=== PATIENT | male | born 1945 | race Caucasian/White ===

== ENCOUNTER 2020-02-04 14:01 | Outpatient (CLI) | payer MEDICARE, OTHER, SELFPAY ==
--- NOTE | ~2020-02-04 | XR_ITS ---
EXAMINATION: XR fl inj shoulder LT - MR/CT DATE: 02/04/2020 14:51 INDICATION: Left shoulder pain. TECHNIQUE: A time-out was performed to verify the patient's name, date of , and procedure to b e performed. The procedure including the risks, benefits, and alternatives was discussed with the pat ient. Risks discussed included bleeding and infection. The patient understood the risks and agreed to proceed. The skin overlying the left glenohumeral joint was prepped and draped in usual sterile fash ion. Anesthetic was administered with 1% lidocaine subcutaneously. A 22 G needle was advanced under fluoroscopic guidance into the joint. Subsequently, injectate consisting of 12 mL of 1:4 1% lidocai ne and 1:2 Omnipaque 240 was instilled. The needle was removed and the entry site was cleaned and dr essed. There were no immediate complications. Fluoroscopy exposure time was 0.1 minutes. The total n umber of images was 3. FINDINGS: Real-time fluoroscopy demonstrates the needle and contrast in the left glenohumeral joint. IMPRESSION: 1. Successful left glenohumeral joint injection of contrast for subsequent CT arthrography. Reviewed, dictated and finalized at location A. IMPRESSION: 1. Successful left glenohumeral joint injection of contrast for subsequent CT a rthrography.
--- NOTE | ~2020-02-04 | CT_ITS ---
EXAMINATION: CT shoulder LT w con DATE: 02/04/2020 14:53 INDICATION: Left shoulder pain. TECHNIQUE: Computed tomography (CT) of the left shoulder was performed without intravenous contrast a fter intra-articular injection of contrast (CT arthrogram). Automated exposure control and iterative reconstruction technique were employed. The dose-length product was 566.52 mGy-cm. COMPARISON: None FINDINGS: Bone alignment is normal. No fracture. There is a benign bone island in the scapula. There is deep partial thickness cartilage loss of medial humeral head and inferior glenoid. There is severe osteoarthritis of acromioclavicular joint. Biceps tendon is in bicipital groove. There is a full-thi ckness tear of supraspinatus and infraspinatus tendons measuring 4.5 cm anterior to posterior by 4.2 cm proximal to distal. There is an articular sided partial-thickness tear of superior subscapularis t endon. There is volume loss and mild fatty atrophy of supraspinatus and infraspinatus muscle bellies. There is contrast in the glenohumeral joint and subacromial/subdeltoid bursa. 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 IMPRESSION: 1. Massive full-thickness rotator cuff tear. 2. Moderate glenohumeral joint chondrosis. 3. Severe acromioclavicular joint osteoarthritis. Reviewed, dictated and finalized at location A.
== END 2020-02-04 14:02 | disposition home or self-care (01) ==
LOC: ANHIMG 14:10
PROVIDERS: PCP Internal Medicine; Visit Provider Physician Assistant Surgical
DX: M19.012 Primary osteoarthritis, left shoulder (principal)
CPT/HCPCS: 23350; 73201; 77002; Q9966

== ENCOUNTER 2022-02-13 17:21 | Emergency (ER) | payer MEDICARE, OTHER, SELFPAY ==
[2022-02-13 17:31] VITALS: BP 122/68; PULSE 75; RESP 16; TEMP 36.5; O2SAT 100
--- NOTE | 2022-02-13 17:50 | ED.WOUNDLAC ---
HPI - Wound/Laceration General Chief Complaint: Wound/Laceration Stated Complaint: Head injury Time Seen by Provider: 02/13/22 17:40 Source: patient and family Mode of arrival: ambulatory Limitations: no limitations History of Present Illness HPI narrative: Mr. Oneal is a 76-year-old male patient presenting to the clinic today with complaints of laceration to the back of the head. He reports he was knocked off the mower when hitting a landscape brick and hit his head up against a post causing a laceration to the back of his head. He denies loss of consciousness. He denies a current headache. Is on Eliquis and wound is bleeding. This happened around 4:00 today and he has since showered. Tetanus is up-to-date. Also has abrasion to the left shoulder and left ear. Related Data Allergies Allergy/AdvReac Type Severity Reaction Status Date / Time propoxyphene Allergy Mild UNKNOWN; Unverified 02/13/22 17:51 REACTION IN 1968 Review of Systems Review of Systems: Pertinent positives per HPI. Patient denies any fever, chills, rash, headache, visual changes, dizziness, cough, runny nose, sore throat, shortness of breath, chest pain, palpitations, nausea, vomiting, diarrhea, constipation, abdominal pain, or any urinary issues. PMFSH Comments At the time of my signature, I reviewed and agree with the nursing past medical, surgical, social, and family history. There is no relevant family history pertinent to the patient complaint. Exam Narrative: General: Well-developed, well nourished, in no apparent distress Head: Normocephalic, laceration to occipital Cardio: Regular rate and rhythm, s1 and s2 normal, no murmur appreciated. Resp: Clear to auscultation bilaterally, no rhonchi, rales, wheezing or rubs. Integumentary: [address], warm, and dry, 2 cm gaping laceration to the left posterior head with clean edges. Laceration repair consent obtained and 6 hermelinda were placed bringing the wound edges together well. Bleeding controlled TAJ and dressing applied Course Course Emergency Course: Portions of this record may have been created with voice recognition software. Level of Care: Express Care Visit Vital Signs Vital signs: Vital Signs Temperature 36.5 C 02/13/22 17:31 Pulse Rate 75 02/13/22 17:31 Respiratory Rate 16 02/13/22 17:31 Blood Pressure 122/68 02/13/22 17:31 Pulse Oximetry 100 02/13/22 17:31 Temperature 36.5 C 02/13/22 17:31 Pulse Rate 75 02/13/22 17:31 Respiratory Rate 16 02/13/22 17:31 Blood Pressure 122/68 02/13/22 17:31 Pulse Oximetry 100 02/13/22 17:31 Vital signs reviewed Procedures Laceration Laceration 1: Date: 02/13/22 Site: scalp Side (If applicable): left Size (cm): 2 Description: linear Depth: simple, single layer Local Anesthetic: none Pre-repair: irrigated ====== Skin Level ====== Skin layer closed with: hermelinda (6 hermelinda) ====== Subcutaneous Layer ====== ====== Muscle Layer ====== ====== Tendon Layer ====== Dressing: Verbal consent obtained for laceration repair. Risk and benefits explained and patient voiced understanding. Area was cleansed with [employer] and was prepped and draped using sterile technique. A stapler was used to place (6) hermelinda bringing the wound edges together- well approximated. Patient tolerated procedure well. Sterile dressing and triple antibiotic ointment applied. Discharge Plan Discharge Clinical Impression: Stapled skin wound Laceration of head without foreign body Qualifiers: Encounter type: initial encounter Location of open wound of head: other part of head Qualified Code(s): S01.81XA - Laceration without foreign body of other part of head, initial encounter Patient Disposition: Home, Self-Care Condition: Stable Instructions: Antibiotic Form, Laceration (ED) Additional Instructions: Closed head injury red flags di
== END 2022-02-13 18:06 | disposition home or self-care (01) ==
PROVIDERS: Emergency Provider Nurse Practitioner Family; PCP Internal Medicine
DX: S01.01XA Laceration without foreign body of scalp, initial encounter (principal); W28.XXXA Contact with powered lawn mower, initial encounter; E78.00 Pure hypercholesterolemia, unspecified; I10 Essential (primary) hypertension; J44.9 Chronic obstructive pulmonary disease, unspecified; Z95.0 Presence of cardiac pacemaker
CPT/HCPCS: 12001; 99212; G0463

== ENCOUNTER 2022-02-18 12:50 | Emergency (ER) | payer MEDICARE, OTHER, SELFPAY ==
[2022-02-18 12:55] VITALS: BP 135/67; PULSE 75; RESP 16; TEMP 36.3; O2SAT 100
--- NOTE | 2022-02-18 13:06 | PC.NURSE ---
1306 Pt seen by [facility] who reports that patient should not have hermelinda removed today, he has appointment with his PMD on Sunday and will check at that time. Left facility with , no discharge instructions given.
--- NOTE | 2022-02-18 18:37 | ED.WOUNDLAC ---
HPI - Wound/Laceration General Chief Complaint: Wound/Laceration Stated Complaint: STAPLE REMOVAL Time Seen by Provider: 02/18/22 12:56 Source: patient, family and RN notes reviewed Mode of arrival: ambulatory Limitations: no limitations History of Present Illness HPI narrative: Patient was told by previous provider to come to clinic today to have 6 hermelinda removed from occipital area of head which were placed 5 days ago. Patient states that he is still having some bloody drainage from the wound and is covering area with a band-aide. Patient is on daily blood thinner. Patient states that he has no acute headache or any visual disturbances, has not felt nauseated or had any vomiting or dizziness. Onset (ago): day(s) (5) Location: scalp Place: home Context: accidental Related Data Home Medications Medication Instructions Recorded Confirmed apixaban [Eliquis] 5 mg PO BID 02/13/22 02/18/22 atorvastatin 10 mg PO DAILY 02/13/22 02/18/22 carvedilol 12.5 mg PO BID 02/13/22 02/18/22 cholecalciferol (vitamin D3) 125 mcg PO DAILY 02/13/22 02/18/22 [Vitamin D3] cyanocobalamin (vitamin B-12) 1,000 mcg PO DAILY 02/13/22 02/18/22 [Vitamin B-12] furosemide 10 mg PO DAILY 02/13/22 02/18/22 lactobacillus combination no.8 1 cell PO DAILY 02/13/22 02/18/22 [Adult Probiotic] lisinopril-hydrochlorothiazide 1 tablet PO DAILY 02/13/22 02/18/22 [Zestoretic] magnesium 400 mg PO BID 02/13/22 02/18/22 methylcellulose (laxative) 500 mg PO BID 02/13/22 02/18/22 [Citrucel] Allergies Allergy/AdvReac Type Severity Reaction Status Date / Time propoxyphene Allergy Mild UNKNOWN; Unverified 02/18/22 12:54 REACTION IN 1969 Review of Systems Review of Systems: CONSTITUTIONAL: Denies fever, chills, or sweats. EYES: Denies visual changes, redness, or discharge. ENT: Denies rhinorrhea, congestion, sore throat, or otalgia. CARDIOVASCULAR: Denies chest pain, palpitations, or edema. RESPIRATORY: Denies cough or dyspnea. GASTROINTESTINAL: Denies abdominal pain, nausea, vomiting, or diarrhea. GENITOURINARY: Denies dysuria or hematuria. SKIN: Denies rash or itching. 6 [place] to occipital region of head MUSCULOSKELETAL: Denies back pain, joint pain, or myalgia. NEUROLOGIC: Denies headache, numbness, or weakness. PSYCHIATRIC: Denies anxiety or depression. 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 There is no relevant family history pertinent to the presenting complaint Exam Narrative: GENERAL: Well-appearing, well-nourished, and in no acute distress. HEAD: Normocephalic, atraumatic. EYES: PERRLA and EOMI. ENT: Nares clear, no rhinorrhea or epistaxis. Mucous membranes moist. NECK: Supple. No lymphadenopathy CHEST: Clear to auscultation. No respiratory distress. SaO2 100% on room air HEART: Regular rate and rhythm. No murmur heard. Normal peripheral pulses. ABDOMEN: Soft, nontender, nondistended, normal active bowel sounds. EXTREMITIES: Normal range of motion. No edema. SKIN: Warm, dry, no rash. Wound to occipital region of head has 6 hermelinda intact still oozing some bloody drainage has been 5 days since hermelinda placed. Patient has appointment with PCP on Sunday will wait and have hermelinda removed in his office due to continued drainage from wound. Hermelinda have
== END 2022-02-18 13:06 | disposition home or self-care (01) ==
PROVIDERS: Emergency Provider Registered Nurse; PCP Internal Medicine
DX: S01.01XA Laceration without foreign body of scalp, initial encounter (principal); X58.XXXA Exposure to other specified factors, initial encounter; E78.00 Pure hypercholesterolemia, unspecified; I10 Essential (primary) hypertension; G47.33 Obstructive sleep apnea (adult) (pediatric); Z95.0 Presence of cardiac pacemaker; Z85.820 Personal history of malignant melanoma of skin; F17.290 Nicotine dependence, other tobacco product, uncomplicated
CPT/HCPCS: 99211; G0463

== ENCOUNTER 2025-04-15 06:43 | Outpatient (CLI) | payer MEDICARE, OTHER, SELFPAY ==
[2025-04-15 07:25] LABS: Basophils Percent Auto 0.4 % (0.2-1.2); Eosinophils Absolute Auto 0.1 K/mm3 (0-0.3); Hematocrit 43.3 % (42.0-52.0); Immature Granulocyte Absolute 0.01 K/mm3 (0.00-0.031); Immature Granulocyte Percent A 0.2 % (0-0.5); Immature Platelet Fraction Pct 2.1 % (0.9-11.2); Lymphocytes Absolute Auto 2.06 K/mm3 (0.9-3.2); Lymphocytes Percent Auto 41.4 % (18.3-44.2); Mean Corpuscular HGB Conc 32.3 g/dl (32-36); Mean Corpuscular Hemoglobin 30.3 pg (26-34); Mean Corpuscular Volume 93.7 fl (80-100); Mean Platelet Volume 9.3 fl (7.4-10.4); Monocytes Absolute Auto 0.5 K/mm3 (0.1-0.6); Monocytes Percent Auto 9.1 % (2.6-8.5); Neutrophils Absolute Auto 2.3 K/mm3 (1.3-6.7); Neutrophils Percent Auto 46.9 % (45.5-73.1); Platelet Count Result 139 k/mm3 (150-375); Red Blood Count 4.62 M/mm3 (4.6-6.20); Red Cell Distribution Width 12.9 % (11.5-14.5)
[2025-04-15 07:41] LABS: Alanine Aminotransferase 25 U/L (6-50); Alkaline Phosphatase 63 U/L (38-126); Anion Gap 5 mmol/L (4-12); Aspartate Amino Transferase 31 U/L (17-59); Bilirubin,Total 1.4 mg/dL (0.2-1.3); Blood Urea Nitrogen 22 mg/dL (9-20); Calcium 9.1 mg/dL (8.4-10.2); Carbon Dioxide 31 mmol/L (22-30); Chloride 100 mmol/L (98-107); Cholesterol 140 mg/dL (0-200); Estimated Glomerular Filt Rate > 60; Glucose 106 mg/dL (65-110); HDL Direct 43 mg/dL; Potassium 4.2 mmol/L (3.4-5.0); Sodium 136 mmol/L (137-145); Triglycerides 139 mg/dL (<150)
[2025-04-15 07:52] LABS: LDL Cholesterol Direct 59 mg/dL
[2025-04-15 10:28] LABS: Free T3 3.62 pg/mL (2.45-5.93); Free T4 Free Thyroxine 1.15 ng/dL (0.78-2.19)
== END 2025-04-15 06:44 | disposition home or self-care (01) ==
LOC: ANHLAB 06:45
PROVIDERS: PCP Internal Medicine; Visit Provider Internal Medicine
DX: I10 Essential (primary) hypertension (principal)
CPT/HCPCS: 36415; 80053; 80061; 84439; 84443; 84481; 85025; 85055